=== PATIENT | male | born 1980 | race Caucasian/White ===

== ENCOUNTER → 2020-12-19 08:23 | Outpatient (CLI) | payer OTHER, SELFPAY ==
[2020-12-19 12:57] LABS: COVID19 -Nasal RAPID POSITIVE (Negative)
[2020-12-19 18:34] LABS: COVID-19 CEPHEID PCR (VTM/NP) Negative (Negative)
== END ==
PROVIDERS: Visit Provider Physician Assistant
DX: U07.1 COVID-19 (principal)
CPT/HCPCS: 87635; U0003